=== PATIENT | male | born 1965 | race Caucasian/White ===

== ENCOUNTER 2025-04-30 14:56 | Emergency (ER) | payer BC ==
[~2025-04-30] VITALS: Ht 177.8 cm; Wt 110.4 kg
--- NOTE | 2025-04-30 15:11 | Physician Documentation ---
History of Present Illness ~ Chief Complaint: Testicular Pain Stated Complaint: "BLOOD COMING OUT OF MY TESTICLE" Time Seen by MD: 17:31 Primary Medical Doctor: [email or web address] [facility] This is a 59-year-old male presents to the ED with a complaint of bleeding from his right testicle. He reports currently treating a fungal infection in his testicular area of with antifungal cream. Denies any pain denies any exacerbating or alleviating factors. This morning noticed blood was coming out from his right testicle. Patient reports the lesions are nonpainful. Medication Reconciliation Allergies: Coded Allergies: Sulfa (Sulfonamide Antibiotics) (Verified Allergy, Unknown, high fever and chest pain, 12/05/14) Past Medical History Past Medical History: Sleep Apnea Past Surgical History: cholecystectomy, other Alcohol Use: Occasionally Drug Use: marijuana Review of Systems ROS Scrotal skin bleeding as stated above in the HPI, otherwise all systems are reviewed and negative. Physical Exam Vital Signs: Temperature: 98.4, Source: Temporal, Heart Rate: 111, Respiratory Rate: 15, BP: 134/94, Pulse Oximetry: 94, Weight: 110.400 Physical Exam VITALS: Reviewed and as above. GENERAL: Alert, nontoxic appearing, no apparent distress. RESPIRATORY: No increased work of breathing, no respiratory distress, speaking in full clear sentences : Scattered Multiple punctate blood-filled vesicles to all aspects of scrotum with single vesicle bleeding on right aspect of testicle, otherwise no erythema, ecchymosis, swelling, or penile discharge Progress Results/Orders Results/Orders Vital Signs 04/30/25 04/30/25 15:08 16:29 Temp 98.4 98.0 Pulse 111 98 Resp 15 15 B/P (MAP) 134/94 130/75 (93) Pulse Ox 94 99 Medical Decision Making Findings This 59-year-old male presented with multiple nontender punctate blood filled vesicles to the skin of the scrotum with a single lesion bleeding, 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 Patient otherwise had no other concerns or complaints and was otherwise well-appearing with remainder of physical exam benign. Bleeding controlled with direct pressure from a piece of 2 x 2 gauze. Patient directed to follow up with primary care provider for further evaluation and management of angiokeratomas. Patient reported understanding of follow up instructions return to care precautions. Genital Diff Dx:Considerations: Include: Balanitis, Balanoposthitis, Cellulitis, Jan's gangrene, Foreign body, Hydrocele, Inguinal hernia, Testicular torsion, Urethritis, Other (Laceration) Departure Disposition: HOME / SELF CARE / HOMELESS Impression: Primary Impression: Scrotal bleeding Condition: Improved Additional Instructions: The lesions on your testicles are likely benign, please follow up with the primary care provider for possible referral to Dermatology. Please pickup driver some nonstick gauze from your choice of pharmacy to place on the lesions when they bleed. Please follow up with your primary care provider in the next few days. Please return to the emergency department for any new or worsening concerning symptoms. Referrals: NO PRIMARY CARE PROVIDER (PCP) Education Educated: Patient Educated regarding: diagnosis, treatment, prognosis, need for follow up Signature Scribe Signature: No scribe Attestation: The note accurately reflects work and decisions made by me.KELECHI Paul 04/30/25 20:30 SCOOTER NATH NP Apr 30, 2025 15:11 EVETTE AVILA Apr 30, 2025 17:57
[2025-04-30 16:29] VITALS: BP 130/75; PULSE 98; RESP 15; TEMP 98; O2SAT 99
== END 2025-04-30 18:32 | disposition home or self-care (01) ==
LOC: ER 14:57
DX: N50.89 Other specified disorders of the male genital organs (principal); G47.30 Sleep apnea, unspecified; F12.90 Cannabis use, unspecified, uncomplicated; Z88.2 Allergy status to sulfonamides; Z90.49 Acquired absence of other specified parts of digestive tract
CPT/HCPCS: 99281; 99282